=== PATIENT | male | born 1965 | race Caucasian/White ===

== ENCOUNTER → 2016-11-19 | Outpatient (CLI) | payer OTHER ==
--- NOTE | 2016-11-19 14:37 | KCIC ---
PROCEDURE MRI brain without contrast HISTORY Essential tremor, left hand tremor for 2-3 years, unsteady gait TECHNIQUE Sagittal and axial T1, axial and coronal T2, axial diffusion, axial FLAIR, and axial gradient echo T2 weighted images were acquired of the brain. COMPARISON None FINDINGS There is mild motion. There is no evidence of recent infarct or cytotoxic edema. There is no intra-axial mass effect, midline shift, extra-axial fluid collection. Allowing for motion, there is no convincing focal signal abnormality including hemosiderin deposition of brain parenchyma. There is preservation of the major arterial intracranial flow voids at the skull base. There is mild to moderate left and mild right maxillary sinus mucosal thickening, also patchy mild to moderate ethmoid air cell and minimal frontal sinus mucosal thickening. There is mild thickening of the mastoid air cells bilaterally. Cerebellar tonsils are normal in location. There is no significant abnormality of pineal gland or pituitary gland. There is nonspecific mild heterogeneity of marrow of the clivus. IMPRESSION 1. There is no significant intracranial abnormality. 2. There is paranasal sinus mucosal thickening as stated greatest of the left maxillary sinus. Electronically signed by: Adonis Chauhan MD (Nov 19, 2016 14:36:34)
== END | disposition home or self-care (01) ==
LOC: KCIC MRI 13:24
PROVIDERS: ATTEND Psychiatry & Neurology Neurology with Special Qualifications in Child Neurology
DX: G25.0 Essential tremor (principal); J32.0 Chronic maxillary sinusitis
CPT/HCPCS: 70551

== ENCOUNTER → 2017-10-05 | Outpatient (CLI) | payer OTHER ==
--- NOTE | 2017-10-05 16:14 | KCIC ---
MR of the right elbow Indication: Pain for about 3 months. No injury. Technique: Standard multiplanar sequences are obtained. Findings: Anterior: There is a longitudinal split defect of the distal biceps tendon at the radial insertion. There is minimal surrounding fluid/edema. Findings are compatible with a longitudinal split tear. Note that a bifid variant could result in a similar appearance, but due to the presence of mild surrounding fluid and mild subtendinous edema at the radial tuberosity, a tear is thought to be more likely. Brachialis tendon intact Posterior: Mild thickening and signal at the insertion compatible with tendinosis. Medial: Common flexor tendon and ulnar collateral ligament are intact. Lateral: Mild signal within the common extensor tendon compatible with tendinosis. No defect or tear. Lateral collateral ligaments appear intact. Fluid: No significant effusion. Joints: No advanced DJD. Bones: No focal lesion. No acute fracture. Soft tissues: No concerning edema or fluid accumulation Ulnar nerve: Unremarkable Impression: 1. Findings compatible with a longitudinal split tear of the distal biceps tendon. A transverse rupture or retraction. 2. Mild common extensor tendinosis. Electronically signed by: Derrick Lynne MD (10/05/2017 4:10 PM) [facility]
--- NOTE | 2017-10-05 16:20 | KCIC ---
MR of the right humerus HISTORY: Right arm pain. Pain 3 months. TECHNIQUE: Routine multiplanar sequences are obtained. FINDINGS: The scan covers the humeral shaft. Note that the distal humerus and elbow are not covered. A skin marker indicates the area of pain, anterior to the midhumerus. No bone lesion. No acute fracture. No marrow edema or stress reaction. No abnormal soft tissue edema or muscle tissue is intact. IMPRESSION: No significant abnormality identified. Electronically signed by: Derrick Lynne MD (10/05/2017 4:17 PM) [facility]
== END | disposition home or self-care (01) ==
LOC: KCIC MRI 14:33
PROVIDERS: ATTEND Nurse Practitioner Primary Care
DX: Z02.9 Encounter for administrative examinations, unspecified (principal); M79.601 Pain in right arm
CPT/HCPCS: 73218; 73221